=== PATIENT | male | born 2000 | race Caucasian/White ===

== ENCOUNTER 2023-09-10 10:38 | Day surgery (SDC) | payer OTHER ==
[2023-09-10] MEDS: Lactated Ringers 1,000 ML IV SCH (10:58)
== END 2023-09-10 12:30 | disposition home or self-care (01) ==
LOC: CC.SDS 10:38
PROVIDERS: ATTEND Family Medicine
DX: R19.7 Diarrhea, unspecified (principal); F32.A Depression, unspecified; Z79.899 Other long term (current) drug therapy
CPT/HCPCS: J7120

== ENCOUNTER 2024-07-27 16:55 | Emergency (ER) | payer OTHER ==
[2024-07-27] MEDS: ceFAZolin 2 GM Vial IVPUSH ONE (17:26)
[2024-07-27] MEDS: Acetaminophen/HYDROcodone 325-5 MG Tab PO ONE (17:27)
[2024-07-27] MEDS: Lidocaine 1% with EPINEPHrine 1:100,000 10 ML MDV INJECT ONE (17:45)
[2024-07-27] MEDS: Lidocaine 1% 5 ML VIAL INJECT ONE (17:45)
[2024-07-27] MEDS: Take Home: Acetaminophen/HYDROcodone 325-5 MG, 2 Tab Pack PO ONE (18:39)
[2024-07-27] MEDS: ceFAZolin 1 GM Vial IM ONE (18:58)
== END 2024-07-27 18:50 | disposition home or self-care (01) ==
LOC: CC.ED 16:55
DX: S62.662B Nondisplaced fracture of distal phalanx of right middle finger, initial encounter for open fracture (principal); Z79.82 Long term (current) use of aspirin; Z79.899 Other long term (current) drug therapy; W23.1XXA Caught, crushed, jammed, or pinched between stationary objects, initial encounter
CPT/HCPCS: 12002; 73140-F7; 96374; 99283-25; A9270-GY; J0690; J2003

== ENCOUNTER 2024-10-06 18:50 | Emergency (ER) | payer OTHER ==
[2024-10-06 19:23] LABS: BASOPHILS ABSOLUTE AUTO 0.07 10^3/uL (0.00-0.50); BASOPHILS PERCENT AUTO 0.5 % (0-1); EOSINOPHILS ABSOLUTE AUTO 0.27 10^3/uL (0.00-1.50); HEMATOCRIT 39.7 % (42.0-52.0); HEMOGLOBIN 13.6 g/dL (14.0-18.0); IMMATURE GRAN ABSOLUTE AUTO 0.04 10^3/uL (0.00-0.49); IMMATURE GRAN PERCENT AUTO 0.3 % (0.0-4.9); LYMPHOCYTES ABSOLUTE AUTO 2.46 10^3/uL (0.60-5.00); LYMPHOCYTES PERCENT AUTO 18.2 % (24-44); MEAN CORPUSCULAR HEMOGLOBIN 31.3 pg (27.0-32.0); MEAN CORPUSCULAR HGB CONC 34.3 g/dL (32.0-36.0); MEAN CORPUSCULAR VOLUME 91.3 fL (83.0-97.0); MONOCYTES ABSOLUTE AUTO 0.74 10^3/uL (0.00-1.50); MONOCYTES PERCENT AUTO 5.5 % (0-10); NEUTROPHILS ABSOLUTE AUTO 9.92 x10^3/uL (1.80-8.00); NEUTROPHILS PERCENT AUTO 73.5 % (41-71); PLATELET COUNT,PLT 233 10^3/uL (150-400); RED BLOOD CELL COUNT 4.35 x10^6/uL (4.50-6.00); WHITE BLOOD CELL COUNT,WBC 13.5 10^3/uL (4.0-11.0)
[2024-10-06 19:38] LABS: ALANINE AMINOTRANSFERASE,ALT 29 U/L (12-78); ALBUMIN 3.9 g/dL (3.4-5.0); ALKALINE PHOSPHATASE 119 U/L (46-116); ASPARTATE AMNIOTRANSFERASE,AST 22 U/L (15-37); BILIRUBIN TOTAL 0.4 mg/dL (0.0-1.0); BLOOD UREA NITROGEN,BUN 10 mg/dL (7-18); CALCIUM 9.6 mg/dL (8.4-10.1); CARBON DIOXIDE,CO2 29 mmol/L (21-32); CHLORIDE,CL 99 mEq/L (98-106); CREATININE 0.9 mg/dL (0.7-1.3); ESTIMATED GFR 122 mL/min (>=60); GLUCOSE RANDOM 96 mg/dL (75-99); POTASSIUM,K 3.8 mEq/L (3.5-5.0); PROTEIN TOTAL,TP 7.4 g/dL (6.4-8.2); SODIUM,NA 136 mEq/L (136-145)
[2024-10-06 19:39] LABS: ETHANOL BLOOD MEDICAL < 3 mg/dL (0-3)
[2024-10-06 20:06] LABS: APPEARANCE,URINE CLEAR (CLEAR); BILIRUBIN,URINE NEGATIVE (NEGATIVE); COLOR,URINE YELLOW (YELLOW); GLUCOSE,URINE NEGATIVE (NEGATIVE); KETONES,URINE NEGATIVE (NEGATIVE); LEUKOCYTE ESTERASE,URINE NEGATIVE (NEGATIVE); NITRITE,URINE NEGATIVE (NEGATIVE); OCCULT BLOOD,URINE NEGATIVE (NEGATIVE); PROTEIN,URINE NEGATIVE (NEGATIVE); UROBILINOGEN,URINE 0.2 EU/dL (0.2-1.0)
[2024-10-06 20:12] LABS: AMPHETAMINES,URINE POSITIVE (NEGATIVE); BARBITURATES,URINE NEGATIVE (NEGATIVE); BENZODIAZEPINE,URINE NEGATIVE (NEGATIVE); MDMA (ECSTASY), URINE NEGATIVE (NEGATIVE); METHADONE,URINE NEGATIVE (NEGATIVE); METHAMPHETAMINES,URINE NEGATIVE (NEGATIVE); OPIATES,URINE NEGATIVE (NEGATIVE); OXYCODONE,URINE NEGATIVE (NEGATIVE); PHENCYCLIDINE,URINE NEGATIVE (NEGATIVE); TCA,URINE NEGATIVE (NEGATIVE)
== END 2024-10-06 21:10 | disposition home or self-care (01) ==
LOC: CC.ED 18:50
DX: S20.222A Contusion of left back wall of thorax, initial encounter (principal); M54.2 Cervicalgia; M25.531 Pain in right wrist; Z79.899 Other long term (current) drug therapy; Z79.82 Long term (current) use of aspirin; V49.40XA Driver injured in collision with unspecified motor vehicles in traffic accident, initial encounter; Y92.410 Unspecified street and highway as the place of occurrence of the external cause
CPT/HCPCS: 36415; 70450; 71046; 72125; 72128; 72170; 73110-RT; 80053; 80305-QW; 80307; 81003; 85025; 93005; 99283; 99284